=== PATIENT | male | born 1970 | race Caucasian/White ===

== ENCOUNTER 2024-08-05 01:32 | Outpatient (RCR) | payer OTHER, SELFPAY ==
[2024-07-23] MEDS: Normal Saline Flush 10 ML SYR IVP (11:30)
[2024-07-23 11:41] LABS: Abs Immature Grans 0.06 10^3/uL (0.0-0.06); Absolute Basophil Count 0.04 10^3/uL (0.0-0.2); Absolute Lymphocyte Count 0.93 10^3/uL (1.2-3.4); Absolute Monocyte Count 0.79 10^3/uL (0.1-0.8); Absolute Neutrophil Count 4.65 10^3/uL (1.2-6.7); Basophils % 0.6 %; Eosinophils % 1.5 %; HCT 35.9 % (40.0-50.0); HGB 11.8 g/dL (13.5-17.5); Immature Grans % 0.9 %; Lymphocytes % 14.2 %; MCH 31.2 pg (27.0-33.0); MCHC 32.9 % (32.0-36.0); MCV 95 fL (80-95); MPV 9.9 fL (8.0-11.0); Neutrophils % 70.8 %; Platelet Count 342 10^3/uL (130-400); RBC 3.78 10^6/uL (4.36-5.78); RDW 16.6 % (11.8-14.1); WBC 6.57 10^3/uL (4.4-10.8)
[2024-07-23 11:57] LABS: ALT 22 U/L (16-63); AST 17 U/L (15-37); Albumin 3.9 g/dL (3.4-5.0); Alkaline Phosphatase 86 U/L (46-116); BUN 10 mg/dL (7-18); Bilirubin, Total 0.47 mg/dL (0.2-1.0); CREATININE 1.1 mg/dL (0.70-1.30); Calcium 9.6 mg/dL (8.5-10.1); Chloride 106 mmol/L (98-107); Estimated GFR 78.79 (mL/min/1.73m2); Glucose 99 mg/dL (74-106); LDH 133 U/L (85-227); Magnesium 1.5 mg/dL (1.8-2.4); PHOSPHORUS 3.5 mg/dL (2.6-4.7); Sodium 138 mmol/L (136-145); Total Protein 7.5 g/dL (6.4-8.2)
[2024-08-05] MEDS: Normal Saline Flush 10 ML SYR IVP (10:39)
[2024-08-05 10:53] LABS: Abs Immature Grans 0.04 10^3/uL (0.0-0.06); Absolute Basophil Count 0.02 10^3/uL (0.0-0.2); Absolute Eosinophil Count 0.09 10^3/uL (0.0-0.7); Absolute Lymphocyte Count 0.91 10^3/uL (1.2-3.4); Absolute Monocyte Count 0.77 10^3/uL (0.1-0.8); Absolute Neutrophil Count 5.32 10^3/uL (1.2-6.7); Basophils % 0.3 %; Eosinophils % 1.3 %; HCT 35.7 % (40.0-50.0); HGB 11.8 g/dL (13.5-17.5); Immature Grans % 0.6 %; Lymphocytes % 12.7 %; MCH 31.6 pg (27.0-33.0); MCHC 33.1 % (32.0-36.0); MCV 96 fL (80-95); MPV 10.3 fL (8.0-11.0); Monocytes % 10.8 %; Neutrophils % 74.3 %; Platelet Count 264 10^3/uL (130-400); RBC 3.74 10^6/uL (4.36-5.78); RDW 15.6 % (11.8-14.1); RDW-SD 55.6 fL; WBC 7.15 10^3/uL (4.4-10.8)
[2024-08-05 11:15] LABS: ALT 24 U/L (16-63); AST 17 U/L (15-37); Albumin 3.8 g/dL (3.4-5.0); Alkaline Phosphatase 116 U/L (46-116); Anion Gap 8.9 mmol/L (3-11); BUN 16 mg/dL (7-18); Bilirubin, Total 0.38 mg/dL (0.2-1.0); CO2 24.1 mmol/L (21.0-32.0); CREATININE 1.2 mg/dL (0.70-1.30); Calcium 9.9 mg/dL (8.5-10.1); Chloride 105 mmol/L (98-107); Estimated GFR 70.98 (mL/min/1.73m2); Glucose 97 mg/dL (74-106); LDH 129 U/L (85-227); Sodium 138 mmol/L (136-145); Total Protein 7.5 g/dL (6.4-8.2)
== END 2024-08-18 23:59 | disposition home or self-care (01) ==
LOC: INF 01:32
PROVIDERS: PCP Nurse Practitioner Family
DX: C34.32 Malignant neoplasm of lower lobe, left bronchus or lung (principal)
CPT/HCPCS: 36591; 80053; 83615; 83735; 84100; 85025

== ENCOUNTER 2024-08-19 10:36 | Outpatient (RCR) | payer BC, SELFPAY ==
[2024-08-19 12:26] LABS: Abs Immature Grans 0.02 10^3/uL (0.0-0.06); Absolute Basophil Count 0.02 10^3/uL (0.0-0.2); Absolute Eosinophil Count 0.09 10^3/uL (0.0-0.7); Absolute Lymphocyte Count 1.08 10^3/uL (1.2-3.4); Absolute Monocyte Count 0.58 10^3/uL (0.1-0.8); Absolute Neutrophil Count 3.83 10^3/uL (1.2-6.7); Basophils % 0.4 %; Eosinophils % 1.6 %; HCT 34.9 % (40.0-50.0); HGB 11.8 g/dL (13.5-17.5); Immature Grans % 0.4 %; Lymphocytes % 19.2 %; MCH 32.1 pg (27.0-33.0); MCHC 33.8 % (32.0-36.0); MCV 95 fL (80-95); MPV 10.5 fL (8.0-11.0); Monocytes % 10.3 %; Neutrophils % 68.1 %; Platelet Count 275 10^3/uL (130-400); RBC 3.68 10^6/uL (4.36-5.78); RDW 14.9 % (11.8-14.1); RDW-SD 52.2 fL; WBC 5.62 10^3/uL (4.4-10.8)
[2024-08-19 12:38] LABS: ALT 21 U/L (16-63); AST 16 U/L (15-37); Albumin 3.6 g/dL (3.4-5.0); Alkaline Phosphatase 93 U/L (46-116); Anion Gap 10.7 mmol/L (3-11); BUN 10 mg/dL (7-18); Bilirubin, Total 0.37 mg/dL (0.2-1.0); CO2 22.3 mmol/L (21.0-32.0); CREATININE 1.2 mg/dL (0.70-1.30); Calcium 9.3 mg/dL (8.5-10.1); Chloride 102 mmol/L (98-107); Estimated GFR 70.98 (mL/min/1.73m2); Glucose 151 mg/dL (74-106); LDH 128 U/L (85-227); Magnesium 1.8 mg/dL (1.8-2.4); PHOSPHORUS 3.7 mg/dL (2.6-4.7); Potassium 3.7 mmol/L (3.5-5.1); Sodium 135 mmol/L (136-145); Total Protein 7.1 g/dL (6.4-8.2)
== END 2024-09-18 23:59 | disposition home or self-care (01) ==
LOC: INF 10:36
PROVIDERS: PCP Nurse Practitioner Family
DX: C34.32 Malignant neoplasm of lower lobe, left bronchus or lung (principal); Z45.2 Encounter for adjustment and management of vascular access device
CPT/HCPCS: 36591; 80053; 83615; 83735; 84100; 85025

== ENCOUNTER 2024-09-26 00:58 | Outpatient (RCR) | payer BC, SELFPAY ==
[2024-09-26] MEDS: Normal Saline Flush 10 ML SYR IVP (07:11)
[2024-09-26 07:14] LABS: Abs Immature Grans 0.01 10^3/uL (0.0-0.06); Absolute Basophil Count 0.02 10^3/uL (0.0-0.2); Absolute Lymphocyte Count 0.97 10^3/uL (1.2-3.4); Absolute Monocyte Count 0.68 10^3/uL (0.1-0.8); Absolute Neutrophil Count 4.23 10^3/uL (1.2-6.7); Basophils % 0.3 %; Eosinophils % 1.7 %; HCT 36.7 % (40.0-50.0); HGB 12.5 g/dL (13.5-17.5); Immature Grans % 0.2 %; Lymphocytes % 16.1 %; MCH 32.1 pg (27.0-33.0); MCHC 34.1 % (32.0-36.0); MCV 94 fL (80-95); Monocytes % 11.3 %; Neutrophils % 70.4 %; Platelet Count 279 10^3/uL (130-400); RBC 3.89 10^6/uL (4.36-5.78); RDW 13.5 % (11.8-14.1); RDW-SD 46.3 fL; WBC 6.01 10^3/uL (4.4-10.8)
[2024-09-26 07:29] LABS: ALT 16 U/L (16-63); AST 13 U/L (15-37); Albumin 3.8 g/dL (3.4-5.0); Alkaline Phosphatase 85 U/L (46-116); Anion Gap 13.6 mmol/L (3-11); BUN 14 mg/dL (7-18); Bilirubin, Total 0.48 mg/dL (0.2-1.0); CO2 22.4 mmol/L (21.0-32.0); Calcium 9.4 mg/dL (8.5-10.1); Chloride 107 mmol/L (98-107); Estimated GFR 88.33 (mL/min/1.73m2); Glucose 106 mg/dL (74-106); LDH 107 U/L (85-227); Magnesium 1.7 mg/dL (1.8-2.4); PHOSPHORUS 3.6 mg/dL (2.6-4.7); Potassium 3.4 mmol/L (3.5-5.1); Sodium 143 mmol/L (136-145); Total Protein 7.5 g/dL (6.4-8.2)
== END 2024-10-18 23:59 | disposition home or self-care (01) ==
LOC: INF 00:58
PROVIDERS: PCP Nurse Practitioner Family
DX: C34.32 Malignant neoplasm of lower lobe, left bronchus or lung (principal); Z45.2 Encounter for adjustment and management of vascular access device
CPT/HCPCS: 36591; 80053; 83615; 83735; 84100; 85025

== ENCOUNTER 2024-11-07 08:00 | Outpatient (RCR) | payer BC, SELFPAY ==
[2024-10-20 07:23] LABS: Abs Immature Grans 0.02 10^3/uL (0.0-0.06); Absolute Basophil Count 0.02 10^3/uL (0.0-0.2); Absolute Eosinophil Count 0.12 10^3/uL (0.0-0.7); Absolute Lymphocyte Count 0.99 10^3/uL (1.2-3.4); Absolute Monocyte Count 0.73 10^3/uL (0.1-0.8); Absolute Neutrophil Count 4.45 10^3/uL (1.2-6.7); Basophils % 0.3 %; Eosinophils % 1.9 %; HCT 36.6 % (40.0-50.0); HGB 12.4 g/dL (13.5-17.5); Immature Grans % 0.3 %; Lymphocytes % 15.6 %; MCH 31.9 pg (27.0-33.0); MCHC 33.9 % (32.0-36.0); MCV 94 fL (80-95); MPV 9.9 fL (8.0-11.0); Monocytes % 11.5 %; Neutrophils % 70.4 %; Platelet Count 274 10^3/uL (130-400); RBC 3.89 10^6/uL (4.36-5.78); RDW 13.6 % (11.8-14.1); RDW-SD 46.7 fL; WBC 6.33 10^3/uL (4.4-10.8)
[2024-10-20] MEDS: Normal Saline Flush 10 ML SYR IVP (07:24)
[2024-10-20 07:41] LABS: ALT 20 U/L (16-63); AST 14 U/L (15-37); Albumin 3.9 g/dL (3.4-5.0); Alkaline Phosphatase 83 U/L (46-116); Anion Gap 12.9 mmol/L (3-11); BUN 11 mg/dL (7-18); Bilirubin, Total 0.47 mg/dL (0.2-1.0); CO2 21.1 mmol/L (21.0-32.0); CREATININE 1.3 mg/dL (0.70-1.30); Calcium 9.1 mg/dL (8.5-10.1); Chloride 106 mmol/L (98-107); Estimated GFR 64.47 (mL/min/1.73m2); Glucose 128 mg/dL (74-106); PHOSPHORUS 3.6 mg/dL (2.6-4.7); Potassium 3.9 mmol/L (3.5-5.1); Sodium 140 mmol/L (136-145); Total Protein 7.5 g/dL (6.4-8.2)
[2024-11-07] MEDS: Normal Saline Flush 10 ML SYR IVP (08:35)
[2024-11-07 08:49] LABS: Abs Immature Grans 0.04 10^3/uL (0.0-0.06); Absolute Basophil Count 0.02 10^3/uL (0.0-0.2); Absolute Eosinophil Count 0.14 10^3/uL (0.0-0.7); Absolute Lymphocyte Count 0.96 10^3/uL (1.2-3.4); Absolute Monocyte Count 0.87 10^3/uL (0.1-0.8); Absolute Neutrophil Count 4.74 10^3/uL (1.2-6.7); Basophils % 0.3 %; Eosinophils % 2.1 %; HCT 35.8 % (40.0-50.0); HGB 12.2 g/dL (13.5-17.5); Immature Grans % 0.6 %; Lymphocytes % 14.2 %; MCH 31.6 pg (27.0-33.0); MCHC 34.1 % (32.0-36.0); MCV 93 fL (80-95); Monocytes % 12.9 %; Neutrophils % 69.9 %; Platelet Count 289 10^3/uL (130-400); RBC 3.86 10^6/uL (4.36-5.78); RDW 13.3 % (11.8-14.1); RDW-SD 45.1 fL; WBC 6.77 10^3/uL (4.4-10.8)
[2024-11-07 09:07] LABS: ALT 17 U/L (16-63); AST 14 U/L (15-37); Albumin 3.7 g/dL (3.4-5.0); Alkaline Phosphatase 88 U/L (46-116); Anion Gap 13.1 mmol/L (3-11); BUN 8 mg/dL (7-18); Bilirubin, Total 0.44 mg/dL (0.2-1.0); CO2 21.9 mmol/L (21.0-32.0); CREATININE 1.1 mg/dL (0.70-1.30); Calcium 9.2 mg/dL (8.5-10.1); Chloride 106 mmol/L (98-107); Estimated GFR 78.79 (mL/min/1.73m2); Glucose 124 mg/dL (74-106); LDH 138 U/L (85-227); Magnesium 1.7 mg/dL (1.8-2.4); PHOSPHORUS 3.6 mg/dL (2.6-4.7); Potassium 3.5 mmol/L (3.5-5.1); Sodium 141 mmol/L (136-145); Total Protein 7.5 g/dL (6.4-8.2)
== END 2024-11-18 23:59 | disposition home or self-care (01) ==
LOC: INF 08:00
PROVIDERS: PCP Nurse Practitioner Family
DX: C34.32 Malignant neoplasm of lower lobe, left bronchus or lung (principal); Z45.2 Encounter for adjustment and management of vascular access device
CPT/HCPCS: 36591; 80053; 83615; 83735; 84100; 85025

== ENCOUNTER 2024-12-19 00:31 | Outpatient (RCR) | payer BC, SELFPAY ==
[2024-11-21] MEDS: Normal Saline Flush 10 ML SYR IVP (11:11)
[2024-11-21 11:15] LABS: Abs Immature Grans 0.02 10^3/uL (0.0-0.06); Absolute Basophil Count 0.02 10^3/uL (0.0-0.2); Absolute Lymphocyte Count 1.16 10^3/uL (1.2-3.4); Absolute Monocyte Count 0.69 10^3/uL (0.1-0.8); Absolute Neutrophil Count 4.89 10^3/uL (1.2-6.7); Basophils % 0.3 %; Eosinophils % 1.5 %; HCT 33.9 % (40.0-50.0); HGB 11.6 g/dL (13.5-17.5); Immature Grans % 0.3 %; Lymphocytes % 16.9 %; MCHC 34.2 % (32.0-36.0); MCV 94 fL (80-95); MPV 9.8 fL (8.0-11.0); Platelet Count 292 10^3/uL (130-400); RBC 3.62 10^6/uL (4.36-5.78); RDW 13.5 % (11.8-14.1); RDW-SD 46.5 fL; WBC 6.88 10^3/uL (4.4-10.8)
[2024-11-21 11:30] LABS: ALT 21 U/L (16-63); AST 16 U/L (15-37); Albumin 3.8 g/dL (3.4-5.0); Alkaline Phosphatase 81 U/L (46-116); Anion Gap 10.1 mmol/L (3-11); BUN 7 mg/dL (7-18); CO2 24.9 mmol/L (21.0-32.0); CREATININE 0.9 mg/dL (0.70-1.30); Calcium 9.1 mg/dL (8.5-10.1); Chloride 105 mmol/L (98-107); Estimated GFR 100.24 (mL/min/1.73m2); Glucose 119 mg/dL (74-106); LDH 144 U/L (85-227); Magnesium 1.9 mg/dL (1.8-2.4); PHOSPHORUS 3.5 mg/dL (2.6-4.7); Potassium 4.1 mmol/L (3.5-5.1); Sodium 140 mmol/L (136-145); Total Protein 7.3 g/dL (6.4-8.2)
[2024-12-19] MEDS: Normal Saline Flush 10 ML SYR IVP (08:41)
[2024-12-19 09:15] LABS: Abs Immature Grans 0.02 10^3/uL (0.0-0.06); Absolute Basophil Count 0.01 10^3/uL (0.0-0.2); Absolute Eosinophil Count 0.17 10^3/uL (0.0-0.7); Absolute Lymphocyte Count 1.02 10^3/uL (1.2-3.4); Absolute Monocyte Count 0.71 10^3/uL (0.1-0.8); Basophils % 0.2 %; Eosinophils % 2.6 %; HCT 33.6 % (40.0-50.0); HGB 11.2 g/dL (13.5-17.5); Immature Grans % 0.3 %; Lymphocytes % 15.9 %; MCH 32.2 pg (27.0-33.0); MCHC 33.3 % (32.0-36.0); MCV 97 fL (80-95); MPV 10.5 fL (8.0-11.0); Platelet Count 290 10^3/uL (130-400); RBC 3.48 10^6/uL (4.36-5.78); RDW 14.1 % (11.8-14.1); RDW-SD 49.9 fL; WBC 6.43 10^3/uL (4.4-10.8)
[2024-12-19 09:32] LABS: ALT 20 U/L (16-63); AST 14 U/L (15-37); Albumin 3.3 g/dL (3.4-5.0); Alkaline Phosphatase 79 U/L (46-116); Anion Gap 11.5 mmol/L (3-11); BUN 6 mg/dL (7-18); Bilirubin, Total 0.32 mg/dL (0.2-1.0); CO2 25.5 mmol/L (21.0-32.0); CREATININE 1.1 mg/dL (0.70-1.30); Calcium 9.1 mg/dL (8.5-10.1); Chloride 106 mmol/L (98-107); Estimated GFR 78.79 (mL/min/1.73m2); Glucose 126 mg/dL (74-106); LDH 131 U/L (85-227); Magnesium 1.6 mg/dL (1.8-2.4); PHOSPHORUS 3.2 mg/dL (2.6-4.7); Potassium 3.7 mmol/L (3.5-5.1); Sodium 143 mmol/L (136-145); Total Protein 6.8 g/dL (6.4-8.2)
== END 2024-12-19 23:59 | disposition home or self-care (01) ==
LOC: INF 00:31
PROVIDERS: PCP Nurse Practitioner Family
DX: C34.32 Malignant neoplasm of lower lobe, left bronchus or lung (principal)
CPT/HCPCS: 36415; 36591; 80053; 83615; 83735; 84100; 85025

== ENCOUNTER 2025-01-16 01:38 | Outpatient (RCR) | payer BC, SELFPAY ==
[2025-01-02 08:56] LABS: Abs Immature Grans 0.02 10^3/uL (0.0-0.06); Absolute Basophil Count 0.03 10^3/uL (0.0-0.2); Absolute Eosinophil Count 0.18 10^3/uL (0.0-0.7); Absolute Lymphocyte Count 1.09 10^3/uL (1.2-3.4); Absolute Monocyte Count 0.73 10^3/uL (0.1-0.8); Absolute Neutrophil Count 5.85 10^3/uL (1.2-6.7); Basophils % 0.4 %; Eosinophils % 2.3 %; HCT 32.6 % (40.0-50.0); HGB 11.2 g/dL (13.5-17.5); Immature Grans % 0.3 %; Lymphocytes % 13.8 %; MCH 32.6 pg (27.0-33.0); MCHC 34.4 % (32.0-36.0); MCV 95 fL (80-95); MPV 9.7 fL (8.0-11.0); Monocytes % 9.2 %; Platelet Count 294 10^3/uL (130-400); RBC 3.44 10^6/uL (4.36-5.78); RDW 14.2 % (11.8-14.1); RDW-SD 49.4 fL
[2025-01-02 09:20] LABS: ALT 23 U/L (16-63); AST 16 U/L (15-37); Albumin 3.4 g/dL (3.4-5.0); Alkaline Phosphatase 84 U/L (46-116); Anion Gap 8.1 mmol/L (3-11); BUN 8 mg/dL (7-18); Bilirubin, Total 0.35 mg/dL (0.2-1.0); CO2 25.9 mmol/L (21.0-32.0); CREATININE 1.1 mg/dL (0.70-1.30); Calcium 9.2 mg/dL (8.5-10.1); Chloride 107 mmol/L (98-107); Estimated GFR 78.79 (mL/min/1.73m2); Glucose 139 mg/dL (74-106); LDH 130 U/L (85-227); Magnesium 1.6 mg/dL (1.8-2.4); PHOSPHORUS 3.8 mg/dL (2.6-4.7); Potassium 3.7 mmol/L (3.5-5.1); Sodium 141 mmol/L (136-145); Total Protein 6.7 g/dL (6.4-8.2)
[2025-01-02] MEDS: Normal Saline Flush 10 ML SYR IVP (10:29)
[2025-01-16] MEDS: Normal Saline Flush 10 ML SYR IVP (08:12)
[2025-01-16 08:24] LABS: Abs Immature Grans 0.03 10^3/uL (0.0-0.06); Absolute Basophil Count 0.03 10^3/uL (0.0-0.2); Absolute Eosinophil Count 0.16 10^3/uL (0.0-0.7); Absolute Lymphocyte Count 0.99 10^3/uL (1.2-3.4); Absolute Monocyte Count 0.73 10^3/uL (0.1-0.8); Absolute Neutrophil Count 5.03 10^3/uL (1.2-6.7); Basophils % 0.4 %; Eosinophils % 2.3 %; HCT 34.3 % (40.0-50.0); HGB 11.5 g/dL (13.5-17.5); Immature Grans % 0.4 %; Lymphocytes % 14.2 %; MCH 32.2 pg (27.0-33.0); MCHC 33.5 % (32.0-36.0); MCV 96 fL (80-95); MPV 10.3 fL (8.0-11.0); Monocytes % 10.5 %; Neutrophils % 72.2 %; Platelet Count 311 10^3/uL (130-400); RBC 3.57 10^6/uL (4.36-5.78); RDW 13.7 % (11.8-14.1); WBC 6.97 10^3/uL (4.4-10.8)
[2025-01-16 08:43] LABS: ALT 22 U/L (16-63); AST 18 U/L (15-37); Albumin 3.7 g/dL (3.4-5.0); Alkaline Phosphatase 90 U/L (46-116); Anion Gap 12.1 mmol/L (3-11); BUN 9 mg/dL (7-18); Bilirubin, Total 0.36 mg/dL (0.2-1.0); CO2 23.9 mmol/L (21.0-32.0); CREATININE 1.2 mg/dL (0.70-1.30); Calcium 9.5 mg/dL (8.5-10.1); Chloride 105 mmol/L (98-107); Estimated GFR 70.98 (mL/min/1.73m2); Glucose 123 mg/dL (74-106); LDH 127 U/L (85-227); Magnesium 1.7 mg/dL (1.8-2.4); PHOSPHORUS 3.8 mg/dL (2.6-4.7); Potassium 3.9 mmol/L (3.5-5.1); Sodium 141 mmol/L (136-145); Total Protein 7.1 g/dL (6.4-8.2)
== END 2025-01-16 23:59 | disposition home or self-care (01) ==
LOC: INF 01:38
PROVIDERS: PCP Nurse Practitioner Family
DX: C34.32 Malignant neoplasm of lower lobe, left bronchus or lung (principal)
CPT/HCPCS: 36591; 80053; 83615; 83735; 84100; 85025

== ENCOUNTER 2025-03-06 00:40 | Outpatient (RCR) | payer BC, SELFPAY ==
[2025-02-20 08:26] LABS: Abs Immature Grans 0.01 10^3/uL (0.0-0.06); Absolute Basophil Count 0.03 10^3/uL (0.0-0.2); Absolute Eosinophil Count 0.15 10^3/uL (0.0-0.7); Absolute Lymphocyte Count 1.01 10^3/uL (1.2-3.4); Absolute Neutrophil Count 3.18 10^3/uL (1.2-6.7); Basophils % 0.6 %; HCT 32.6 % (40.0-50.0); HGB 11.1 g/dL (13.5-17.5); Immature Grans % 0.2 %; Lymphocytes % 20.3 %; MCH 32.6 pg (27.0-33.0); MCV 96 fL (80-95); MPV 9.6 fL (8.0-11.0); Neutrophils % 63.9 %; Platelet Count 268 10^3/uL (130-400); RBC 3.41 10^6/uL (4.36-5.78); RDW 13.2 % (11.8-14.1); RDW-SD 46.5 fL; WBC 4.98 10^3/uL (4.4-10.8)
[2025-02-20] MEDS: Normal Saline Flush 10 ML SYR IVP (08:35)
[2025-02-20 08:43] LABS: ALT 19 U/L (16-63); AST 14 U/L (15-37); Albumin 3.7 g/dL (3.4-5.0); Alkaline Phosphatase 76 U/L (46-116); Anion Gap 9.8 mmol/L (3-11); BUN 10 mg/dL (7-18); Bilirubin, Total 0.4 mg/dL (0.2-1.0); CO2 23.2 mmol/L (21.0-32.0); CREATININE 0.9 mg/dL (0.70-1.30); Calcium 9.1 mg/dL (8.5-10.1); Chloride 106 mmol/L (98-107); Estimated GFR 100.24 (mL/min/1.73m2); Glucose 105 mg/dL (74-106); LDH 123 U/L (85-227); Magnesium 1.7 mg/dL; PHOSPHORUS 3.4 mg/dL (2.6-4.7); Potassium 3.9 mmol/L (3.5-5.1); Sodium 139 mmol/L (136-145); Total Protein 6.9 g/dL (6.4-8.2)
[2025-03-06] MEDS: Normal Saline Flush 10 ML SYR IVP (09:11)
[2025-03-06 09:24] LABS: Abs Immature Grans 0.01 10^3/uL (0.0-0.06); Absolute Basophil Count 0.02 10^3/uL (0.0-0.2); Absolute Eosinophil Count 0.16 10^3/uL (0.0-0.7); Absolute Lymphocyte Count 0.95 10^3/uL (1.2-3.4); Absolute Monocyte Count 0.59 10^3/uL (0.1-0.8); Absolute Neutrophil Count 3.13 10^3/uL (1.2-6.7); Basophils % 0.4 %; Eosinophils % 3.3 %; HCT 33.7 % (40.0-50.0); HGB 11.4 g/dL (13.5-17.5); Immature Grans % 0.2 %; Lymphocytes % 19.5 %; MCH 32.3 pg (27.0-33.0); MCHC 33.8 % (32.0-36.0); MCV 96 fL (80-95); MPV 10.1 fL (8.0-11.0); Monocytes % 12.1 %; Neutrophils % 64.5 %; Platelet Count 266 10^3/uL (130-400); RBC 3.53 10^6/uL (4.36-5.78); RDW-SD 45.3 fL; WBC 4.86 10^3/uL (4.4-10.8)
[2025-03-06 09:54] LABS: ALT 26 U/L (16-63); AST 21 U/L (15-37); Albumin 3.8 g/dL (3.4-5.0); Alkaline Phosphatase 82 U/L (46-116); Anion Gap 9.9 mmol/L (3-11); BUN 9 mg/dL (7-18); Bilirubin, Total 0.4 mg/dL (0.2-1.0); CO2 26.1 mmol/L (21.0-32.0); CREATININE 0.9 mg/dL (0.70-1.30); Calcium 9.4 mg/dL (8.5-10.1); Chloride 104 mmol/L (98-107); Estimated GFR 100.24 (mL/min/1.73m2); Glucose 99 mg/dL (74-106); LDH 132 U/L (85-227); Magnesium 1.8 mg/dL (1.8-2.4); PHOSPHORUS 3.7 mg/dL (2.6-4.7); Potassium 3.8 mmol/L (3.5-5.1); Sodium 140 mmol/L (136-145); Total Protein 7.1 g/dL (6.4-8.2)
== END 2025-03-18 23:59 | disposition home or self-care (01) ==
LOC: INF 00:40
PROVIDERS: PCP Nurse Practitioner Family
DX: C34.32 Malignant neoplasm of lower lobe, left bronchus or lung (principal); Z45.2 Encounter for adjustment and management of vascular access device
CPT/HCPCS: 36591; 80053; 83615; 83735; 84100; 85025

== ENCOUNTER 2025-04-17 00:44 | Outpatient (RCR) | payer BC, SELFPAY ==
[2025-03-20 09:08] LABS: Abs Immature Grans 0.01 10^3/uL (0.0-0.06); Absolute Basophil Count 0.02 10^3/uL (0.0-0.2); Absolute Eosinophil Count 0.17 10^3/uL (0.0-0.7); Absolute Lymphocyte Count 0.99 10^3/uL (1.2-3.4); Absolute Monocyte Count 0.61 10^3/uL (0.1-0.8); Absolute Neutrophil Count 2.92 10^3/uL (1.2-6.7); Basophils % 0.4 %; Eosinophils % 3.6 %; HCT 32.2 % (40.0-50.0); Immature Grans % 0.2 %; MCH 32.4 pg (27.0-33.0); MCHC 34.2 % (32.0-36.0); MCV 95 fL (80-95); MPV 9.9 fL (8.0-11.0); Monocytes % 12.9 %; Neutrophils % 61.9 %; Platelet Count 269 10^3/uL (130-400); RBC 3.39 10^6/uL (4.36-5.78); RDW 12.9 % (11.8-14.1); WBC 4.72 10^3/uL (4.4-10.8)
[2025-03-20 09:29] LABS: ALT 24 U/L (16-63); AST 17 U/L (15-37); Albumin 3.7 g/dL (3.4-5.0); Alkaline Phosphatase 80 U/L (46-116); Anion Gap 11.3 mmol/L (3-11); BUN 12 mg/dL (7-18); Bilirubin, Total 0.4 mg/dL (0.2-1.0); CO2 25.7 mmol/L (21.0-32.0); CREATININE 0.9 mg/dL (0.70-1.30); Calcium 9.3 mg/dL (8.5-10.1); Chloride 102 mmol/L (98-107); Estimated GFR 100.24 (mL/min/1.73m2); Glucose 114 mg/dL (74-106); LDH 133 U/L (85-227); Magnesium 1.7 mg/dL (1.8-2.4); PHOSPHORUS 3.5 mg/dL (2.6-4.7); Potassium 3.8 mmol/L (3.5-5.1); Sodium 139 mmol/L (136-145)
[2025-03-20] MEDS: Normal Saline Flush 10 ML SYR IVP (09:32)
== END 2025-04-18 23:59 | disposition home or self-care (01) ==
LOC: INF 00:44
PROVIDERS: PCP Nurse Practitioner Family
DX: C34.2 Malignant neoplasm of middle lobe, bronchus or lung (principal); Z45.2 Encounter for adjustment and management of vascular access device
CPT/HCPCS: 36591; 80053; 83615; 83735; 84100; 85025